=== PATIENT | male | born 1995 | race American Indian/Alaskan Native ===

== ENCOUNTER 2022-02-11 18:49 | Emergency (ER) | payer OTHER ==
[~2022-02-11] VITALS: Ht 177.8 cm; Wt 94.1 kg
[2022-02-11 18:57] VITALS: TEMP 97.2
[2022-02-11] MEDS ORDERED: PERCOCET 325 MG1 TA2 PO (21:24)
[2022-02-11 22:30] VITALS: BP 138/87; PULSE 91
== END 2022-02-11 22:30 | disposition home or self-care (01) ==
LOC: COL.ER 18:49
DX: S06.0X0A Concussion without loss of consciousness, initial encounter (principal); S42.022A Displaced fracture of shaft of left clavicle, initial encounter for closed fracture; S01.01XA Laceration without foreign body of scalp, initial encounter; S70.212A Abrasion, left hip, initial encounter; S70.211A Abrasion, right hip, initial encounter; S50.812A Abrasion of left forearm, initial encounter; S50.811A Abrasion of right forearm, initial encounter; S80.812A Abrasion, left lower leg, initial encounter; S60.512A Abrasion of left hand, initial encounter; S60.511A Abrasion of right hand, initial encounter; S40.212A Abrasion of left shoulder, initial encounter; S40.211A Abrasion of right shoulder, initial encounter; V86.95XA Unspecified occupant of 3- or 4- wheeled all-terrain vehicle (ATV) injured in nontraffic accident, initial encounter
CPT/HCPCS: J2270; J3010; J7030; Q9967